=== PATIENT | female | born 1955 | race Caucasian/White ===

== ENCOUNTER 2018-06-02 17:26 | Emergency (ER) | payer OTHER ==
[2018-06-02 17:34] VITALS: BP 145/83
[2018-06-02] MEDS ORDERED: Diphtheria,Pertussis(Acell),Tetanus Vaccine 0.5 ML Syringe IM ONE (18:03)
--- NOTE | 2018-06-09 19:05 | EDM.PDOC ---
ED HPI GENERAL MEDICAL PROBLEM - General Chief Complaint: Laceration Stated Complaint: laceration Time Seen by Provider: 06/02/18 17:35 Source of Information: Reports: Patient History Limitations: Reports: No Limitations - History of Present Illness INITIAL COMMENTS - FREE TEXT/NARRATIVE: Pt. states that she sustained a 2 cm laceration to forehead approx. 4.5 hours prior to coming to the ER. Pt. states that she sustained the laceration while she was attempting to get into a pontoon. Denies LOC or headache. No blurred vision. She has been alert and oriented since the accident. Location: Reports: Head - Related Data Allergies Allergy/AdvReac Type Severity Reaction Status Date / Time Penicillins Allergy Hives Verified 06/02/18 17:34 Sulfa (Sulfonamide Allergy Itching Verified 06/02/18 17:34 Antibiotics) Home Meds: Home Meds Clindamycin HCl [Cleocin] 600 mg PO ASDIRECTED PRN 09/15/16 [History] Cyclobenzaprine [Flexeril] 10 mg PO BEDTIME PRN 09/15/16 [History] DULoxetine [Cymbalta] 60 mg PO DAILY 09/15/16 [History] Estradiol [Vivelle-Dot] 1 patch TOP WEEKLY 09/15/16 [History] Pantoprazole Sodium [Protonix] 20 mg PO DAILY 09/15/16 [History] Spironolact/Hydrochlorothiazid [Aldactazide 25-25] 1 tab PO DAILY 09/15/16 [ History] Naproxen Sodium [Aleve] 220 mg PO BID PRN 02/12/18 [History] Gabapentin [Neurontin] 200 mg PO TID 30 Days #180 capsule 03/06/18 [Rx] Horse Coldwater Seed [Horse [place]] 1 cap PO DAILY 03/06/18 [History] Milk Thistle 1 tab PO DAILY 03/06/18 [History] Turmeric Root Extract [Turmeric] 1 cap PO DAILY 03/06/18 [History] DULoxetine [Cymbalta] 60 mg PO DAILY 06/02/18 [History] Ferrous Sulfate 325 mg PO BID 06/02/18 [History] Past Medical History Cardiovascular History: Reports: Hypertension Respiratory History: Reports: None Gastrointestinal History: Reports: GERD 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 CONTROLS TESTER 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: Reports: , Other (See Below) Other MOTORS AND CONTROLS TESTER History: Menopause Musculoskeletal History: Reports: Back Pain, Chronic, Osteoarthritis, Other ( See Below) Other Musculoskeletal History: Carpal tunnel syndrome bilateral wrists Neurological History: Reports: None Psychiatric History: Reports: Depression Endocrine/Metabolic History: Reports: Obesity/BMI 30+ Hematologic History: Reports: Anemia, Other (See Below) Other Hematologic History: HX hep C Dermatologic History: Reports: Eczema - Past Surgical History HEENT Surgical History: Reports: Tonsillectomy Cardiovascular Surgical History: Reports: None Female Surgical History: Reports: Hysterectomy Endocrine Surgical History: Reports: None Musculoskeletal Surgical History: Reports: Hip Replacement, Knee Replacement, Other (See Below) Other Musculoskeletal Surgeries/Procedures:: Trigger finger Social & Family History - Tobacco Use Smoking Status *Q: Former Smoker Used Tobacco, but Quit: Yes Month/Year Tobacco Last Used: 2014 - Recreational Drug Use Recreational Drug Use: No - Living Situation & Occupation Living situation: Reports: Single, Alone 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[employer]) ED ROS GENERAL - Review of Systems Review Of Systems: See Below Constitutional: Reports: No Symptoms HEENT: Reports: Other (forehead laceration) Respiratory: Reports: No Symptoms Cardiovascular: Reports: No Symptoms Musculoskeletal: Reports: No Symptoms Skin: Reports: No Symptoms Neurological: Reports: No Symptoms ED EXAM, GENERAL - Physical Exam Exam: See Below Exam Limited By: No Limitations General Appearance: Alert, WD/WN, No Apparent Distress Eye Exam: Bilateral Eye: EOMI, Normal Fundi, Normal Inspection, PERRL Nose: Normal Inspection, Normal Mucosa, No Blood Head: Other (2 cm laceration to forehead) Neck: Normal Inspection, Supple, Non-Tender, Full Range of Motion Respiratory/Chest: No Respiratory Distress, Lungs Clear, Normal Breath Sounds, No Accessory Muscle Use, Chest Non-Tender Cardiovascular: Normal Peripheral Pulses, Regular Rate, Rhythm, No Edema, No Gallop, No JVD, No Murmur, No Rub ED GENERAL MEDICAL PROCEDURES - Laceration/Wound Repair Forehead Lac/wound length in cm: 2 Appearance: Superficial Distal NVT: Neuro & Vascular Intact Closed with: Dermabond Course - Vital Signs Last Recorded V/S: Last Vital Signs Temp 35.9 C 06/02/18 17:31 Pulse 106 H 06/02/18 17:31 Resp 18 06/02/18 17:31 BP 145/83 H 06/02/18 17:31 Pulse Ox 94 L 06/02/18 17:31 - Orders/Labs/Meds Meds: Medications Discontinued Medications Generic Name Dose Route Start Last Admin Trade Name Juan PRN Reason Stop Dose Admin Diphtheria/Tetanus/Acell Pertussis 0.5 ml 06/02/18 18:03 06/02/18 18:15 Adacel IM 06/02/18 18:04 0.5 ml .ONCE ONE Administration Departure - Departure Time of Disposition: 19:00 Disposition: Home, Self-Care 01 Clinical Impression: Laceration - Discharge Information Instructions: Tissue Adhesive Wound Care, Laceration Care, Adult Referrals: Drew Ambrose MD [Primary Care Provider] - Forms: ED Department Discharge Additional Instructions: Keep dry for 24 hours. Return to ER or follow-up in clinic if redness, swelling, or discharge from the area.
== END 2018-06-02 18:17 | disposition home or self-care (01) ==
LOC: VM.ED 17:26
DX: S01.81XA Laceration without foreign body of other part of head, initial encounter (principal); I10 Essential (primary) hypertension; K21.9 Gastro-esophageal reflux disease without esophagitis; Z87.891 Personal history of nicotine dependence; Z23 Encounter for immunization; Z88.0 Allergy status to penicillin; Z88.2 Allergy status to sulfonamides; Z79.899 Other long term (current) drug therapy; W22.8XXA Striking against or struck by other objects, initial encounter; Y92.814 Boat as the place of occurrence of the external cause
CPT/HCPCS: 11200; 12001; 12011; 90471; 90715; 99282

== ENCOUNTER 2020-02-24 19:15 | Emergency (ER) | payer MEDICARE, OTHER ==
[2020-02-24] MEDS ORDERED: Take Home: Doxycycline 100 MG Tab, 4 Tab Pack PO ONE (19:16)
[2020-02-24 19:42] VITALS: BP 142/87; PULSE 97
--- NOTE | 2020-02-25 05:31 | EDM.PDOC ---
ED HPI GENERAL MEDICAL PROBLEM - General Chief Complaint: Bite:Animal, Insect Stated Complaint: Scratched by stray cat Time Seen by Provider: 02/24/20 19:15 Source of Information: Reports: Patient History Limitations: Reports: No Limitations - History of Present Illness INITIAL COMMENTS - FREE TEXT/NARRATIVE: Pt. presents to ER with complaints of being scratched by a cat. Pt. states that she is not sure whose cat it was, but she affirmed on several occasions that she is sure she was not bitten. She presents to ER with complaints of a deeper laceration to L lateral chin area and several scratches to her face and hands. She states that her tetanus is up to date. She denies any injury to eyes. She states that the animal was behaving normally until she picked it up. Onset Date: 02/24/20 Location: Reports: Face Quality: Reports: Sharp Cat Scratches on Face Pain Score (Numeric/FACES): 7 - Related Data Allergies Allergy/AdvReac Type Severity Reaction Status Date / Time Penicillins Allergy Hives Verified 02/24/20 19:40 Sulfa (Sulfonamide Allergy Itching Verified 02/24/20 19:40 Antibiotics) Home Meds: Home Meds DULoxetine [Cymbalta] 60 mg PO DAILY 09/15/16 [History] Pantoprazole Sodium [Protonix] 20 mg PO DAILY 09/15/16 [History] Spironolact/Hydrochlorothiazid [Aldactazide 25-25] 1 tab PO DAILY 09/15/16 [ History] estradioL [Vivelle-Dot] 1 patch TOP WEEKLY 09/15/16 [History] Naproxen Sodium [Aleve] 220 mg PO BID PRN 02/12/18 [History] Gabapentin [Neurontin] 200 mg PO TID 30 Days #180 capsule 03/06/18 [Rx] Milk Thistle 1 tab PO DAILY 03/06/18 [History] Ferrous Sulfate 325 mg PO BID 06/02/18 [History] Acetaminophen [Tylenol Extra Strength] 1,000 mg PO QID PRN 06/18/18 [History] Cyclobenzaprine [Flexeril] 10 mg PO TID PRN 30 Days #45 tab 07/02/18 [Rx] Past Medical History Cardiovascular History: Reports: Hypertension Respiratory History: Reports: None Gastrointestinal History: Reports: GERD WORM PICKER History: Reports: , Other (See Below) Other WORM PICKER History: Menopause Musculoskeletal History: Reports: Back Pain, Chronic, Osteoarthritis, Other ( See Below) Other Musculoskeletal History: Carpal tunnel syndrome bilateral wrists Neurological History: Reports: None Psychiatric History: Reports: Depression Endocrine/Metabolic History: Reports: Obesity/BMI 30+ Hematologic History: Reports: Anemia, Other (See Below) Other Hematologic History: HX hep C Dermatologic History: Reports: Eczema - Past Surgical History HEENT Surgical History: Reports: Tonsillectomy Cardiovascular Surgical History: Reports: None Female Surgical History: Reports: Hysterectomy Endocrine Surgical History: Reports: None Musculoskeletal Surgical History: Reports: Hip Replacement, Knee Replacement, Other (See Below) Other Musculoskeletal Surgeries/Procedures:: Trigger finger Social & Family History - Tobacco Use Smoking Status *Q: Former Smoker Used Tobacco, but Quit: Yes Month/Year Tobacco Last Used: 5 Years ago - Recreational Drug Use Recreational Drug Use: No - Living Situation & Occupation Living situation: Reports: Single, Alone 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 ED EXAM, GENERAL - Physical Exam Exam: See Below Exam Limited By: No Limitations General Appearance: Alert, WD/WN, No Apparent Distress Skin Exam: Warm, Dry, Other (subcentimeter well approximated superficial laceration noted to L lateral chin area. She has many small superficial lacerations/abrasions/puncture wounds to her face/scalp.) Course - Vital Signs Last Recorded V/S: Last Vital Signs Temp 35.9 C L 02/24/20 19:15 Pulse 97 02/24/20 19:15 Resp 14 02/24/20 19:15 BP 142/87 H 02/24/20 19:15 Pulse Ox 97 02/24/20 19:15 - Orders/Labs/Meds Meds: Medications Discontinued Medications Generic Name Dose Route Start Last Admin Trade Name Brianq PRN Reason Stop Dose Admin Doxycycline Monohydrate 1 packet 02/24/20 19:16 02/24/20 19:23 Take Home: Doxycycline 100 Mg, 4 Tab Pack PO 02/24/20 19:17 1 packet ONETIME ONE Administration Departure - Departure Time of Disposition: 19:28 Disposition: Home, Self-Care 01 Clinical Impression: Cat scratch of face - Discharge Information Instructions: Laceration Care, Adult, Doxycycline tablets or capsules Referrals: Drew Ambrose MD [Primary Care Provider] - Forms: ED Department Discharge Additional Instructions: We will allow the laceration to your face heal via secondary intention to decrease the chance of infection. Doxycycline 100mg 1 twice daily for 7 days Keep the laceration/scratches open to air to assist with healing. Return if there is any redness, swelling, or discharge from any of the areas. Sepsis Event Note - Evaluation Sepsis Screening Result: No Definite Risk - Focused Exam Vital Signs: Vital Signs Temp Pulse Resp BP Pulse Ox 02/24/20 19:15 35.9 C L 97 14 142/87 H 97 Date Exam was Performed: 02/25/20 Time Exam was Performed: 05:33 - Problem List Review Problem List Initiated/Reviewed/Updated: Yes - Assessment/Plan Plan: We will allow the laceration to your face heal via secondary intention to decrease the chance of infection. Doxycycline 100mg 1 twice daily for 7 days Keep the laceration/scratches open to air to assist with healing. Return if there is any redness, swelling, or discharge from any of the areas.
== END 2020-02-24 19:28 | disposition home or self-care (01) ==
LOC: VM.ED 19:15 → SUPCPDRO 19:15 → VM.ED 19:28
DX: S01.81XA Laceration without foreign body of other part of head, initial encounter (principal); K21.9 Gastro-esophageal reflux disease without esophagitis; I10 Essential (primary) hypertension; E66.9 Obesity, unspecified; Z68.30 Body mass index [BMI] 30.0-30.9, adult; Z88.0 Allergy status to penicillin; Z79.899 Other long term (current) drug therapy; Z88.2 Allergy status to sulfonamides; F32.9 Major depressive disorder, single episode, unspecified; Z87.891 Personal history of nicotine dependence; W55.03XA Scratched by cat, initial encounter
CPT/HCPCS: 99282; A9270; 99283-GF

== ENCOUNTER 2022-04-30 22:31 | Emergency (ER) | payer MEDICARE, OTHER ==
[2022-04-30 22:59] VITALS: BP 164/84; PULSE 87
== END 2022-04-30 23:32 | disposition home or self-care (01) ==
LOC: VM.ED 22:31
DX: R04.0 Epistaxis (principal); K21.9 Gastro-esophageal reflux disease without esophagitis; I10 Essential (primary) hypertension; E66.9 Obesity, unspecified; Z68.34 Body mass index [BMI] 34.0-34.9, adult; Z88.0 Allergy status to penicillin; Z88.2 Allergy status to sulfonamides; Z90.710 Acquired absence of both cervix and uterus; Z79.899 Other long term (current) drug therapy
CPT/HCPCS: 30901; 99283; 99283-25

== ENCOUNTER 2022-11-24 10:33 | Day surgery (SDC) | payer MEDICARE, OTHER ==
[2022-11-24] MEDS: Lactated Ringers 1,000 ML IV SCH (10:46)
[2022-11-24] MEDS ORDERED: Propofol 200 MG/20 ML SDV ONE ×4 (11:02→12:23)
[2022-11-24] MEDS ORDERED: fentaNYL 100 MCG/2 ML SDV ONE (11:02)
[2022-11-24 13:20] VITALS: BP 106/52; PULSE 68
== END 2022-11-24 13:45 | disposition home or self-care (01) ==
LOC: VM.SDS 10:33
PROVIDERS: ATTEND Family Medicine
DX: K52.9 Noninfective gastroenteritis and colitis, unspecified (principal); I10 Essential (primary) hypertension; F32.A Depression, unspecified; M79.10 Myalgia, unspecified site; Z86.010 Personal history of colon polyps; Z88.0 Allergy status to penicillin; Z88.2 Allergy status to sulfonamides; Z98.890 Other specified postprocedural states; Z79.899 Other long term (current) drug therapy; Z90.710 Acquired absence of both cervix and uterus; Z96.652 Presence of left artificial knee joint; Z96.642 Presence of left artificial hip joint
CPT/HCPCS: 00812; 45380; J2704; J3010; J7120; 88305

== ENCOUNTER 2025-04-03 18:25 | Emergency (ER) | payer MEDICARE, OTHER ==
[2025-04-03 18:46] VITALS: BP 159/79; PULSE 87
[2025-04-03] MEDS: Lidocaine 1% 30 ML SDV INJECT ONE (18:56)
[2025-04-03] MEDS: Diphtheria,Pertussis(Acell),Tetanus Vaccine 0.5 ML Syringe IM ONE (18:58)
== END 2025-04-03 19:42 ==
LOC: VM.ED 18:25
DX: S91.115A Laceration without foreign body of left lesser toe(s) without damage to nail, initial encounter (principal); Z23 Encounter for immunization; Z88.0 Allergy status to penicillin; Z88.2 Allergy status to sulfonamides; I10 Essential (primary) hypertension; E66.9 Obesity, unspecified; Z79.899 Other long term (current) drug therapy; W26.8XXA Contact with other sharp object(s), not elsewhere classified, initial encounter
CPT/HCPCS: 12001; 90471; 90715; 99282; J2003